=== PATIENT | female | born 1990 | race Caucasian/White ===

== ENCOUNTER 2017-05-01 15:44 | Emergency (ER) | payer MEDICAID, OTHER ==
[2017-05-01 16:07] VITALS: TEMP 98.2
[2017-05-01 16:13] LABS: COLOR YELLOW; LEUKOCYTE ESTERASE,URINE NEGATIVE (NEGATIVE); NITRITE,URINE NEGATIVE (NEGATIVE); PH,URINE 5.5 (5.0-7.5)
[2017-05-01] MEDS ORDERED: NS 1,000 ML IV ONE (16:23)
[2017-05-01] MEDS ORDERED: ONDANSETRON 4 MG/2 ML VIAL IVP ONE (16:23)
[2017-05-01] MEDS ORDERED: MAG HYDROX/AL HYDROX/SIMETH 30 ML UDCUP PO ONE (16:25)
[2017-05-01] MEDS ORDERED: HYOSCYAMINE SULFATE 0.125 MG TAB PO ONE (16:26)
[2017-05-01 16:29] LABS: WBC,URINE NONE SEEN /hpf (0-3)
[2017-05-01 16:30] LABS: BACTERIA 2+ /hpf (NONE SEEN); MUCUS 3+ /lpf (NONE-1+)
[2017-05-01 16:36] LABS: % IMMATURE GRANULYOCYTES 0.2 % (0.0-1.1); ABSOLUTE IMMATURE GRANULOCYTES 0.02 10^3/uL (0.00-0.10); ADD DIFF? NO; ADD MORPH? NO; ADD SCAN? NO; ATYPICAL LYMPHOCYTE FLAG 10 (0-99); FRAGMENT RBC FLAG 0 (0-99); HEMOGLOBIN 14.6 g/dL (12.6-16.3); LEFT SHIFT FLG 0 (0-99); LIPEMIA HEMOLYSIS FLAG 90 (0-99); MEAN CELL VOLUME 91.3 fL (81.5-99.8); MEAN PLATELET VOLUME 9.4 fL (8.7-11.7); PLATELET CLUMPS FLAG 10 (0-99); PLATELET COUNT 252 10^3/uL (150-400); RED BLOOD CELL COUNT 4.71 10^6/uL (4.18-5.33); RED CELL DISTRIBUTION WIDTH 12.8 % (11.5-15.2)
[2017-05-01 16:54] LABS: ALANINE AMINOTRANSFERASE 22 IU/L (9-52); ALBUMIN 4.1 g/dL (3.5-5.0); ALKALINE PHOSPHATASE 33 IU/L (38-126); ANION GAP 15 mEq/L (8-16); ASPARTATE AMINOTRANSFERASE 19 IU/L (14-46); BILIRUBIN,TOTAL 1.3 mg/dL (0.1-1.4); CALCIUM 9.1 mg/dL (8.5-10.4); CARBON DIOXIDE 21 mEq/l (22-31); CHLORIDE 105 mEq/L (97-110); GLOMERULAR FILTRATION RATE > 60; GLUCOSE 92 mg/dL (70-100); POTASSIUM 4.4 mEq/L (3.5-5.2); SODIUM 141 mEq/L (134-144); TOTAL PROTEIN 7.1 g/dL (6.3-8.2)
--- NOTE | 2017-05-01 17:12 | EDPHY ---
H & P Stated Complaint: abd cramping x 48 hours. Time Seen by Provider: 05/01/17 16:05 HPI/ROS: This patient reports 2 day history of crampy abdominal pain associated with diarrhea. She describes 4-6 episodes a day of loose watery stools colored dark in color. She has not noticed any blood or mucus associated with this but she has had increasing epigastric pain associated with this which has been constant , squeezing aching in nature, 8/10 at peak intensity. Current intensity is 5/ 10. The symptoms worsen when she eats. Her recent history is notable for wisdom tooth removal on Tuesday, 6 days prior to arrival and she reports taking a lot of and said since that time-both ibuprofen and Aleve as well as 5 days of amoxicillin. She stop the amoxicillin on Tuesday when she developed loose stools and cramping. She was on 500 mg 3 times a day prior to that. She has associated nausea but no vomiting. She has anorexia as well. ROS: No fevers or chills no other constitutional symptoms HEENT: No URI symptoms. No headache. Pulmonary: No coughing Cardiovascular: She had some lightheadedness while standing earlier today. She also reports being able to feel her heartbeat in her chest while she was lying flat. She reports that felt like he was beating harder than usual. GI: She again has not noticed any blood in her stool. She did have 1 episode of fecal incontinence on Tuesday associated with her diarrhea. : Last menstrual period was normal timing. No urinary symptoms. Neuro: No symptoms Integumentary: No symptoms 10 point ROS is otherwise negative. Source: Patient, Family (She is accompanied by her mother. Her mother is a PROCUREMENT COORDINATOR) Exam Limitations: No limitations - Personal History LMP (Females 10-55): 1-7 Days Ago Current Tetanus Diphtheria and Acellular Pertussis (TDAP): Yes - Medical/Surgical History PMH: IBS No previous abdominal surgeries Hx Asthma: Yes Other PMH: IBS. Asthma - Family History Significant Family History: No pertinent family hx - Social History Smoking Status: Never smoked Alcohol Use: Occasionally Drug Use: None Additional Social History: Patient's mother had diarrhea on of this week. Her her mother symptoms resolve. - Physical Exam Exam: General Appearance: Alert, no distress. Eyes: Pupils equal and round no pallor or injection. ENT, Mouth: Mucous membranes moist. Respiratory: There are no retractions, lungs are clear to auscultation. Cardiovascular: Regular rate and rhythm. Gastrointestinal: Normoactive, soft, mild epigastric tenderness with no guarding or rebound. No organomegaly. Neurological: GCS 15 with no focal sensory or motor deficits Skin: Warm and dry, no rashes. Musculoskeletal: Neck is supple nontender. Extremities are symmetrical, full range of motion. Psychiatric: Mood and affect normal DIFFERENTIAL DIAGNOSIS: After history and physical exam differential diagnosis was considered for viral gastroenteritis and wound antibiotic associated diarrhea, C diff colitis, IBS, cholecystitis, pancreatitis, gastritis from NSAIDs Constitutional: Initial Vital Signs Temperature (C) 36.8 C 05/01/17 15:50 Heart Rate 60 05/01/17 15:50 Respiratory Rate 16 05/01/17 15:50 Blood Pressure 109/62 05/01/17 15:50 O2 Sat (%) 95 05/01/17 15:50 O2 Delivery Mode Room Air Allergies/Adverse Reactions: No Known Allergies Allergy (Unverified 05/01/17 16:39) Home Medications: Medication Instructions Recorded Albuterol 05/01/17 Ondansetron Odt [Zofran Odt] 4 - 8 mg PO Q4PRN PRN #4 tab 05/01/17 Pantoprazole Sodium [Protonix 40mg 40 mg PO DAILY #30 tab 05/01/17 (*)] Medical Decision Making ED Course/Re-evaluation: IV normal saline bolus Zofran with resolution of nausea, GI cocktail with significant improvement in symptoms. Her CBC is normal, CMP is normal, test is negative, urinalysis with no significant abnormalities. Discussion: I think this patient has NSAID related gastritis and a viral illness causing the diarrhea versus antibiotic induced diarrhea as she was not taking a probiotic while on amoxicillin. I counseled her regarding this. We did encourage her to follow up to provide a stool sample as an outpatient to the lab for stool PCR testing rule out C diff. However, I think this is unlikely given her relatively mild symptoms, lack of leukocytosis, no blood in her stool other significant findings. Patient is comfortable with the plan to go home on probiotics, Zofran for discomfort, Light diet and Protonix. She will follow up with Gastroenterology if she has on any ongoing symptoms despite the treatment plan - Data Points Laboratory Results: Laboratory Results 05/01/17 16:30 05/01/17 16:30 05/01/17 05/01/17 05/01/17 16:30 16:30 16:02 WBC 8.08 10^3/uL 10^3/uL (3.80-9.50) RBC 4.71 10^6/uL 10^6/uL (4.18-5.33) Hgb 14.6 g/dL g/dL (12.6-16.3) Hct 43.0 % % (38.0-47.0) MCV 91.3 fL fL (81.5-99.8) MCH 31.0 pg pg (27.9-34.1) MCHC 34.0 g/dL g/dL (32.4-36.7) RDW 12.8 % % (11.5-15.2) Plt Count 252 10^3/uL 10^3/uL (150-400) MPV 9.4 fL fL (8.7-11.7) Neut % (Auto) 53.2 % % (39.3-74.2) Lymph % (Auto) 33.8 % % (15.0-45.0) [place] % (Auto) 7.5 % % (4.5-13.0) Eos % (Auto) 4.6 % % (0.6-7.6) Baso % (Auto) 0.7 % % (0.3-1.7) Nucleat RBC Rel Count 0.0 % % (0.0-0.2) Absolute Neuts (auto) 4.29 10^3/uL 10^3/uL (1.70-6.50) Absolute Lymphs (auto) 2.73 10^3/uL 10^3/uL (1.00-3.00) Absolute Monos (auto) 0.61 10^3/uL 10^3/uL (0.30-0.80) Absolute Eos (auto) 0.37 10^3/uL 10^3/uL (0.03-0.40) Absolute Basos (auto) 0.06 10^3/uL 10^3/uL (0.02-0.10) Absolute Nucleated RBC 0.00 10^3/uL 10^3/uL (0-0.01) Immature Gran % 0.2 % % (0.0-1.1) Immature Gran # 0.02 10^3/uL 10^3/uL (0.00-0.10) Sodium 141 mEq/L mEq/L (134-144) Potassium 4.4 mEq/L mEq/L (3.5-5.2) Chloride 105 mEq/L mEq/L (97-110) Carbon Dioxide 21 mEq/l L mEq/l (22-31) Anion Gap 15 mEq/L mEq/L (8-16) BUN 15 mg/dL mg/dL (7-23) Creatinine 1.0 mg/dL mg/dL (0.6-1.0) Estimated GFR > 60 Glucose 92 mg/dL mg/dL (70-100) Calcium 9.1 mg/dL mg/dL (8.5-10.4) Total Bilirubin 1.3 mg/dL mg/dL (0.1-1.4) AST 19 IU/L IU/L (14-46) ALT 22 IU/L IU/L (9-52) Alkaline Phosphatase 33 IU/L L IU/L (38-126) Total Protein 7.1 g/dL g/dL (6.3-8.2) Albumin 4.1 g/dL g/dL (3.5-5.0) Lipase 67.0 IU/L IU/L (23-300) Urine Color YELLOW Urine Appearance HAZY Urine pH 5.5 (5.0-7.5) Ur Specific [place] >= 1.030 (1.002-1.030) Urine Protein NEGATIVE (NEGATIVE) Urine Ketones TRACE H (NEGATIVE) Urine Blood 1+ H (NEGATIVE) Urine Nitrate NEGATIVE (NEGATIVE) Urine Bilirubin NEGATIVE (NEGATIVE) Urine Urobilinogen 0.2 EU EU (0.2-1.0) Ur Leukocyte Esterase NEGATIVE (NEGATIVE) Urine RBC 1-3 /hpf /hpf (0-3) Urine WBC NONE SEEN /hpf /hpf (0-3) Ur Epithelial Cells 3+ /lpf H /lpf (NONE-1+) Urine Bacteria 2+ /hpf H /hpf (NONE SEEN) Urine Mucus 3+ /lpf H /lpf (NONE-1+) Urine Glucose NEGATIVE (NEGATIVE) Urine Test 05/01/17 16:02 WBC RBC Hgb Hct MCV MCH MCHC RDW Plt Count MPV Neut % (Auto) Lymph % (Auto) [place] % (Auto) Eos % (Auto) Baso % (Auto) Nucleat RBC Rel Count Absolute Neuts (auto) Absolute Lymphs (auto) Absolute Monos (auto) Absolute Eos (auto) Absolute Basos (auto) Absolute Nucleated RBC Immature Gran % Immature Gran # Sodium Potassium Chloride Carbon Dioxide Anion Gap BUN Creatinine Estimated GFR Glucose Calcium Total Bilirubin AST ALT Alkaline Phosphatase Total Protein Albumin Lipase Urine Color Urine Appearance Urine pH Ur Specific [place] Urine Protein Urine Ketones Urine Blood Urine Nitrate Urine Bilirubin Urine Urobilinogen Ur Leukocyte Esterase Urine RBC Urine WBC Ur Epithelial Cells Urine Bacteria Urine Mucus Urine Glucose Urine Test NEGATIVE Medications Given: Discontinued Medications Al Hydroxide/Mg Hydroxide (Maalox Susp) 30 ml PO EDNOW ONE Stop: 05/01/17 16:26 Last Admin: 05/01/17 16:39 Dose: 30 ml Hyoscyamine Sulfate (Levsin, Hyomax-Sl) 0.125 mg PO EDNOW ONE Stop: 05/01/17 16:27 Last Admin: 05/01/17 16:39 Dose: 0.125 mg Sodium Chloride (Ns) 1,000 mls @ 0 mls/hr IV ONCE ONE; Wide Open PRN Reason: Protocol Stop: 05/01/17 16:24 Last Admin: 05/01/17 16:30 Dose: 1,000 mls Ondansetron HCl (Zofran) 4 mg IVP EDNOW ONE Stop: 05/01/17 16:24 Last Admin: 05/01/17 16:39 Dose: 4 mg Departure - Departure Disposition: Home, Routine, Self-Care Clinical Impression: Gastritis Qualifiers: Gastritis type: other gastritis Chronicity: acute Gastritis bleeding: without bleeding Qualified Code(s): K29.00 - Acute gastritis without bleeding Diarrhea Qualifiers: Diarrhea type: unspecified type Qualified Code(s): R19.7 - Diarrhea, unspecified Condition: Good Instructions: Gastritis (ED), Acute Diarrhea (ED) Additional Instructions: Diagnoses: 1. Gastritis 2. Diarrhea Plan: Maalox for discomfort as needed Protonix, Prilosec or similar acid eliz until your belly discomfort improves. [place] diet until you improved Try to hold off on using NSAIDs until your symptoms improve. Use Tylenol instead Zofran for nausea or vomiting as needed Provide a stool sample to the [facility] lab when you are able Follow up with her primary care physician or GI specialist listed below for any ongoing symptoms despite the treatment plan Return for any significant worsening despite the treatment plan Referrals: Kaur Lezama MD [Primary Care Provider] - As per Instructions Fredy Turcios MD [[facility] Primary Care Provider] - As per Instructions Prescriptions: Ondansetron Odt [Zofran Odt] 4 - 8 mg PO Q4PRN PRN #4 tab PRN Reason: Vomiting Pantoprazole Sodium [Protonix 40mg (*)] 40 mg PO DAILY #30 tab
[2017-05-01 19:52] VITALS: BP 111/63; PULSE 59; RESP 18; O2SAT 97
== END 2017-05-01 17:42 | disposition home or self-care (01) ==
LOC: EDSEX 15:44 → CED 15:44
DX: K29.00 Acute gastritis without bleeding (principal); J45.909 Unspecified asthma, uncomplicated
CPT/HCPCS: 80053-PO; 81003-PO; 81015-PO; 81025-PO; 83690-PO; 85025-PO; 96374; J2405

== ENCOUNTER 2017-11-17 08:40 | Emergency (ER) | payer MEDICAID ==
[2017-11-17 08:49] VITALS: BP 106/82; PULSE 73; RESP 18; TEMP 97.7; O2SAT 95
--- NOTE | 2017-11-17 09:02 | EDPHY ---
HPI/HX/ROS/PE/MDM Narrative: CHIEF COMPLAINT: Right knee injury HPI: The patient is a 26-year-old healthy female. On Tuesday, the patient was skiing when she twisted her knee resulting in severe pain, feeling and instability and difficulty walking. She denies other injury. Since that time she complains of continued pain, primarily with flexion of the knee and weight- bearing. She denies other symptoms. REVIEW OF SYSTEMS: Aside from elements discussed in the HPI, a comprehensive 10-point review of systems was reviewed and is negative. PMH: History of left ACL repair. SOCIAL HISTORY: Student. Single. PHYSICAL EXAM: General:Patient is alert, in no acute distress. Extremities: Right knee: Normal appearance. Full range of motion. Normal anterior drawer test. No instability. Pain primarily only with axial loading and knee flexion. No edema. No warmth. No erythema. Neuro: Oriented x3. Normal motor function. Normal sensory function. MDM: This is a young healthy female with knee pain after injury. Her exam is inconsistent with full ACL tear given lack of instability and effusion. XRs are negative for fracture. Patient declined a knee immobilizer. I suspect a possible meniscus injury. Patient given referral to orthopedics. - Data Points Imaging: Discussed imaging studies w/ call worker person Radiologist, I viewed and interpreted images myself General Time Seen by Provider: 11/17/17 08:50 Initial Vital Signs: Initial Vital Signs Temperature (C) 36.5 C 11/17/17 08:46 Heart Rate 73 11/17/17 08:46 Respiratory Rate 18 11/17/17 08:46 Blood Pressure 106/82 H 11/17/17 08:46 O2 Sat (%) 95 11/17/17 08:46 O2 Delivery Mode Room Air Allergies/Adverse Reactions: No Known Allergies Allergy (Verified 11/17/17 08:45) Home Medications: Medication Instructions Recorded Albuterol 05/01/17 Departure - Departure Disposition: Home, Routine, Self-Care Clinical Impression: Right knee sprain Condition: Good Instructions: Knee Sprain (DC) Additional Instructions: Rest, ice, elevation. Follow up with an orthopedic surgeon within one week if pain persists. Return to the emergency department for worsening pain, swelling , numbness, weakness or other concerns. Referrals: NONE *PRIMARY CARE P,. [Primary Care Provider] - As per Instructions Daphne Dahl MD [Medical Doctor] - As per Instructions
== END 2017-11-17 09:34 | disposition home or self-care (01) ==
LOC: CED 08:40
DX: S83.91XA Sprain of unspecified site of right knee, initial encounter (principal); X50.9XXA Other and unspecified overexertion or strenuous movements or postures, initial encounter; Y99.8 Other external cause status; Y93.23 Activity, snow (alpine) (downhill) skiing, snowboarding, sledding, tobogganing and snow tubing
CPT/HCPCS: 73564-PO

== ENCOUNTER → 2017-12-04 | Outpatient (CLI) | payer MEDICAID | LOC: FIMAGING 07:55 | PROVIDERS: ATTEND Physician Assistant | DX: S83.511A Sprain of anterior cruciate ligament of right knee, initial encounter (principal); T14.8XXA Other injury of unspecified body region, initial encounter ==